=== PATIENT | male | born 1975 | race Caucasian/White ===

== ENCOUNTER 2016-06-22 11:49 | Emergency (ER) | payer OTHER ==
[~2016-06-22] VITALS: Ht 177.8 cm; Wt 115.7 kg
[2016-06-22 12:18] VITALS: BP 117/74
--- NOTE | 2016-06-22 12:23 | NUR ---
PT AMBULATED TO BED 7 AT THIS TIME.
--- NOTE | 2016-06-22 12:28 | NUR ---
Patient being evaluated by physician at bedside.
[2016-06-22] MEDS ORDERED: NACL 0.9% 1,000 ML IV SCH (12:29)
[2016-06-22] MEDS ORDERED: ONDANSETRON 4 MG/2 ML VIAL IVP ONE (12:30)
--- NOTE | 2016-06-22 12:30 | NUR ---
41/M presents to ED for evaluation of bilateral facial pain x3 days. Pt also c/o swelling to face, worse on the left side. Patient ambulates with cane, pt visually impaired. Unable to see out of right eye. Patient denies any trauma or injury. Patient c/o 4/10 pain, intemittent, non radiating. Patient is AOX4, family at bedside. VSS.
[2016-06-22] MEDS ORDERED: AMPICILLIN/SULBACTAM 3 GM in NACL 0.9% 100 ML IV ONE (12:35)
--- NOTE | 2016-06-22 12:48 | NUR ---
Pt taken to CT via w/c.
--- NOTE | 2016-06-22 13:00 | NUR ---
Patient returned from CT.
[2016-06-22] MEDS ORDERED: AMPICILLIN/SULBACTAM 3 GM VIAL ONE (13:38)
--- NOTE | 2016-06-22 14:53 | NUR ---
Patient appears to be resting comfortably in bed. Vital Signs within normal limits. Respirations even and unlabored.
--- NOTE | 2016-06-22 15:41 | NUR ---
IV removed, catheter intact and site benign. Applied folded 4x4 gauze and tape to stop bleeding.
[2016-06-22 15:47] VITALS: BP 119/77
--- NOTE | 2016-06-22 15:48 | NUR ---
Chart checked and completed. The patient's care was reviewed and supervised by Brian Zapata RN.
--- NOTE | 2016-06-22 15:48 | NUR ---
Patient discharged with v/s stable. Written and verbal after care instructions given and explained. Patient alert, oriented and verbalized understanding of instructions. Ambulatory with steady gait. All questions addressed prior to discharge. ID band removed. Patient advised to follow up with PMD. Rx of BACTRIM AND TYLENOL NO 3 given. Patient educated on indication of medication including possible reaction and side effects. Opportunity to ask questions provided and answered.
== END 2016-06-22 15:48 | disposition home or self-care (01) ==
LOC: EEVIPCON 11:49 → MED 11:49
PROC: 3E033GC Introduction of Other Therapeutic Substance into Peripheral Vein, Percutaneous Approach (ICD-10-PCS; principal; 2016-06-22)
PROC: BN25ZZZ Computerized Tomography (CT Scan) of Facial Bones (ICD-10-PCS; 2016-06-22)
DX: J32.9 Chronic sinusitis, unspecified (principal); R51 Headache; K02.9 Dental caries, unspecified
CPT/HCPCS: 36415; 70486; 80053; 82150; 83605; 85025; 87040; 96361; 96365; 96375; 99285; J0295; J2405; J7030